=== PATIENT | male | born 1995 | race Caucasian/White ===

== ENCOUNTER 2018-10-29 02:04 | Emergency (ER) | payer MEDICAID ==
[2018-10-29] MEDS: LORAZEPAM 0.5 MG TAB PO (04:27)
== END 2018-10-29 04:35 | disposition home or self-care (01) ==
LOC: E/R 02:04
DX: T62.0X1A Toxic effect of ingested mushrooms, accidental (unintentional), initial encounter (principal); R40.2142 Coma scale, eyes open, spontaneous, at arrival to emergency department; R40.2362 Coma scale, best motor response, obeys commands, at arrival to emergency department; R40.2242 Coma scale, best verbal response, confused conversation, at arrival to emergency department; F41.9 Anxiety disorder, unspecified
CPT/HCPCS: 99283; Z7502